=== PATIENT | female | born 1990 | race Caucasian/White ===

== ENCOUNTER 2019-01-05 07:20 | Emergency (ER) | payer OTHER ==
[~2019-01-05] VITALS: Ht 147.3 cm; Wt 59.0 kg
[2019-01-05 09:24] LABS: HEMATOCRIT 33.4 % (37.0-47.0); HEMOGLOBIN 11.7 gm/dL (12.0-15.0); MCH 32.1 pg (26.0-34.0); MCV 91.6 fL (80.0-100.0); RBC 3.65 mil/uL (4.20-5.00); RDW 14.1 % (10.5-14.5); WBC 10.3 thou/uL (4.0-11.0)
[2019-01-05 09:42] LABS: CALCIUM 9.4 mg/dL (8.5-10.1); CREATININE 0.5 mg/dL (0.6-1.0); POTASSIUM 3.3 mmol/L (3.5-5.1)
[2019-01-05 11:28] VITALS: BP 102/63
== END 2019-01-05 11:28 | disposition home or self-care (01) ==
LOC: ER 07:20
PROVIDERS: Emergency Medicine
DX: O26.892 Other specified pregnancy related conditions, second trimester (principal); J06.9 Acute upper respiratory infection, unspecified; H92.02 Otalgia, left ear; Z3A.23 23 weeks gestation of pregnancy